=== PATIENT | female | born 1955 | race Caucasian/White ===

== ENCOUNTER 2023-03-21 07:54 | Day surgery (SDC) | payer MEDICARE ==
[2023-03-21] MEDS ORDERED: LIDOCAINE HCL 2% 100 MG/5 ML IJ ONE (07:55)
[2023-03-21] MEDS ORDERED: DIPRIVAN 200 MG/20 ML IV ONE (10:00)
--- NOTE | 2023-03-21 11:24 | XRAY ---
Indication: Left L4-S1 MBB. Intraoperative fluoroscopy provided for 16 seconds. 2 digital spot images submitted for interpretation demonstrates posterior needle tips projecting over the expected left L4-S1 nerve roots. Correlate with intraoperative findings/report.
--- NOTE | 2023-03-21 11:46 | XRAY ---
16 seconds of fluoroscopy was used in surgery for a left L4-S1 MBB.
[2023-03-21] MEDS ORDERED: Lactated Ringers 1,000 ML IV ONE (12:25)
== END 2023-03-21 10:33 | disposition home or self-care (01) ==
LOC: SDC-PAIN 07:54
PROVIDERS: ATTEND Psychiatry & Neurology Pain Medicine
DX: M47.816 Spondylosis without myelopathy or radiculopathy, lumbar region (principal); E11.9 Type 2 diabetes mellitus without complications
CPT/HCPCS: 64493; 64494; 72020; 77002; 82947; J2704

== ENCOUNTER 2023-04-18 08:00 | Day surgery (SDC) | payer MEDICARE ==
[2023-04-18] MEDS ORDERED: BUPIVACAINE 0.5% VIAL IJ ONE (08:01)
[2023-04-18] MEDS ORDERED: DIPRIVAN 200 MG/20 ML IV ONE (09:59)
--- NOTE | 2023-04-18 10:47 | XRAY ---
Indication: Left L4-S1 MBB. Intraoperative fluoroscopy provided for 12 seconds. Single digital spot image submitted for interpretation demonstrates posterior needle tips projecting over the expected left L4-S1 nerve roots. Correlate with intraoperative findings/report.
--- NOTE | 2023-04-18 10:54 | XRAY ---
12 seconds of fluoroscopy was used in surgery for a left L4-S1 MBB.
[2023-04-18] MEDS ORDERED: Lactated Ringers 1,000 ML IV ONE (11:51)
== END 2023-04-18 10:27 | disposition home or self-care (01) ==
LOC: SDC-PAIN 08:00
PROVIDERS: ATTEND Psychiatry & Neurology Pain Medicine
DX: M47.816 Spondylosis without myelopathy or radiculopathy, lumbar region (principal); E11.9 Type 2 diabetes mellitus without complications; Z79.899 Other long term (current) drug therapy
CPT/HCPCS: 64493; 64494; 72020; 77002; 82947; J2704

== ENCOUNTER 2023-05-23 07:53 | Day surgery (SDC) | payer MEDICARE ==
[2023-05-23] MEDS ORDERED: Depo-Medrol 40 MG/ML IM ONE (07:54)
[2023-05-23] MEDS ORDERED: LIDOCAINE HCL 1% 50 MG/5 ML VL PF IJ ONE (07:54)
[2023-05-23] MEDS ORDERED: BUPIVACAINE 0.5% VIAL IJ ONE (07:54)
[2023-05-23] MEDS ORDERED: DEXMEDETOMIDINE 80 MCG/20ML-NS IV ONE (09:48)
[2023-05-23] MEDS ORDERED: DIPRIVAN 200 MG/20 ML IV ONE (09:48)
--- NOTE | 2023-05-23 10:38 | XRAY ---
Indication: Left L4-S1 RFA. Intraoperative fluoroscopy provided for 24 seconds. 3 digital spot image submitted for interpretation demonstrates posterior needle tips projecting over the expected left L4-S1 nerve roots. Correlate with intraoperative findings/report.
[2023-05-23] MEDS ORDERED: Lactated Ringers 1,000 ML IV ONE (11:41)
--- NOTE | 2023-05-23 11:44 | XRAY ---
24 seconds of fluoroscopy was used in surgery for a left L4-S1 RFA.
== END 2023-05-23 10:33 | disposition home or self-care (01) ==
LOC: SDC-PAIN 07:53
PROVIDERS: ATTEND Psychiatry & Neurology Pain Medicine
DX: M47.816 Spondylosis without myelopathy or radiculopathy, lumbar region (principal); E11.9 Type 2 diabetes mellitus without complications
CPT/HCPCS: 64635; 64636; 72100; 77002; 82947; J1030; J2001; J2704